=== PATIENT | male | born 1960 | race Caucasian/White ===

== ENCOUNTER 2016-11-01 21:18 | Emergency (ER) | payer MEDICAID ==
[~2016-11-01] VITALS: Ht 180.3 cm; Wt 88.0 kg
[2016-11-01] MEDS ORDERED: LISI2.5T PO (21:29)
[2016-11-01] MEDS ORDERED: PLEASE ENTER HEIGHT AND WEIGHT MC SCH (21:30)
[2016-11-01] MEDS ORDERED: LIDOCAINE 1%-EPI 1:100K, 20ML SQ ONE (21:30)
[2016-11-01] MEDS ORDERED: LIDOCAINE 1%-EPI 1:100K, 30ML ONE ×2 (21:31→21:46)
[2016-11-01] MEDS ORDERED: BACITRACIN ZINC OINT 500U/GM, 0.9 GM ONE (22:34)
[2016-11-01 23:20] VITALS: BP 162/92
== END 2016-11-01 23:22 | disposition home or self-care (01) ==
LOC: ED 23:16
DX: S51.811A Laceration without foreign body of right forearm, initial encounter (principal); W45.8XXA Other foreign body or object entering through skin, initial encounter; Y93.89 Activity, other specified; Y92.89 Other specified places as the place of occurrence of the external cause; Y99.8 Other external cause status
CPT/HCPCS: 12004